=== PATIENT | female | born 1965 | race Caucasian/White ===

== ENCOUNTER 2017-05-13 01:37 | Observation (INO) | payer OTHER ==
[2017-05-13] VITALS (9 sets, daily range): BP systolic 98–141; BP diastolic 58–80; PULSE 69–88; RESP 16–19; TEMP 98.4–98.8; O2SAT 93–100
[~2017-05-13] VITALS: Ht 177.8 cm; Wt 64.9 kg
[~2017-05-13 01:37] MED LIST: Z.0.NO CURRENT MEDS
[2017-05-13] MEDS ORDERED: CLIN1CAP5 PO (01:48)
--- NOTE | 2017-05-13 02:34 | PD ---
HPI Chief Complaint: Edema Time Seen by Provider: 02:05 Travel History International Travel<30 days: No Contact w/Intl Traveler<30days: No Traveled to known affect area: No History of Present Illness HPI 51-year-old female complains of pain swelling left hand. Patient states that she was punctured by palm frond to the left hand about a week ago. Patient states that the palm frond still embedded in the left hand. Patient was seen at local urgent care and placed on clindamycin 300 mg 3 times a day, 6 days ago. Patient states that she has increasing pain and swelling to left hand since then. Patient denies any fever chills. Patient is not sure of TD booster status. PFSH Past Medical History Diminished Hearing: No Tetanus Vaccination: Unknown Influenza Vaccination: No ?: Not LMP: [place]ap[place] : 3 Para: 2 Miscarriage: 1 Past Surgical History Oral Surgery: Yes Other Surgery: Yes (perineal repair with anesthesia) Social History Alcohol Use: Yes (rare) Tobacco Use: No Substance Use: No Allergies-Medications (Allergen,Severity, Reaction): Coded Allergies: Cipro (Verified Allergy, Severe, MD TOLD HER NOT TO TAKE, 05/13/17) Sulfa (Verified Allergy, Severe, Shortness of Breath, 05/13/17) Penicillin (Verified Allergy, Mild, 05/13/17) Reported Meds & Prescriptions Reported Meds & Active Scripts Active Reported Clindamycin (Clindamycin HCl) 150 Mg Cap 300 Mg PO Q8HR Review of Systems General / Constitutional: No: Fever Eyes: No: Visual changes HENT: No: Headaches Cardiovascular: No: Chest Pain or Discomfort Respiratory: No: Shortness of Breath Gastrointestinal: No: Abdominal Pain Genitourinary: No: Dysuria Musculoskeletal: Positive: Pain Skin: No Rash Neurologic: No: Weakness Psychiatric: No: Depression Endocrine: No: Polydipsia Hematologic/Lymphatic: No: Easy Bruising Physical Exam Narrative GENERAL: Well-nourished, well-developed patient. SKIN: Focused skin assessment warm/dry. HEAD: Normocephalic. EYES: No scleral icterus. No injection or drainage. NECK: Supple, trachea midline. No JVD or lymphadenopathy. CARDIOVASCULAR: Regular rate and rhythm without murmurs, gallops, or rubs. RESPIRATORY: Breath sounds equal bilaterally. No accessory muscle use. GASTROINTESTINAL: Abdomen soft, non-tender, nondistended. MUSCULOSKELETAL: No cyanosis, or edema. BACK: Nontender without obvious deformity. No CVA tenderness. Patient has soft tissue swelling tenderness at the second MCP joint of the left hand. Mild redness noted. No heat noted. Sensorimotor function distally intact. Patient has a lot of pain on flexion-extension of the left index finger at the MCP joint. Data Data Last Documented VS Vital Signs Date Time Temp Pulse Resp B/P Pulse Ox O2 Delivery O2 Flow Rate FiO2 05/13/17 01:42 98.4 69 18 107/73 99 Orders Complete Blood Count With Diff (05/13/17 02:57) Basic Metabolic Panel (Bmp) (05/13/17 02:57) Prothrombin Time / Inr (Pt) (05/13/17 02:57) Act Partial Throm Time (Ptt) (05/13/17 02:57) Iv Access Insert/Monitor (05/13/17 02:57) Electrocardiogram (05/13/17 02:57) Urinalysis - C+S If Indicated (05/13/17 02:57) Hand, Complete (Non3zmk) (05/13/17 02:57) [facility] Medical Decision Making Medical Screen Exam Complete: Yes Emergency Medical Condition: Yes Differential Diagnosis Differential diagnosis including cellulitis, abscess, retained foreign body, septic joint. Narrative Course 51-year-old female with pain swelling left hand secondary to puncture wound to left hand and foreign body retention. I spoke with hand surgeon Dr. Napoles. Advised observation and possible hand surgery in a.m. Diagnosis Primary Impression: Cellulitis of left hand Additional Impression: Foreign body of left hand Qualified Code: S60.552A - Foreign body of left hand, initial encounter Admitting Information Admitting Physician Requests: Observation Marcelino Crook MD May 13, 2017 02:34
[2017-05-13 03:29] LABS: BLOOD, URINE NEG (NEG); GLUCOSE,URINE NEG (NEG); KETONE, URINE NEG (NEG); NITRITE,URINE NEG (NEG)
[2017-05-13] MEDS ORDERED: ONDANSETRON HCL 4 MG/2 ML VIAL IV PRN (03:30)
[2017-05-13] MEDS ORDERED: TETANUS/DIPHTHERIA TOXOID ADULT 0.5 ML VIAL IM ONE (03:30)
[2017-05-13] MEDS ORDERED: CLINDAMYCIN INJ 300 MG in SODIUM CHLORIDE 0.9% INJ 100 ML IV ONE (03:30)
[2017-05-13] MEDS ORDERED: SODIUM CHLORIDE 0.9% FLUSH 10 ML FLUSH IVF PRN (03:30)
[2017-05-13 03:32] LABS: AUTOMATED NEUTROPHIL # 8.6 TH/MM3 (1.8-7.7); BASOPHIL # 0.1 TH/MM3 (0-0.2); BASOPHIL % 0.8 % (0.0-2.0); EOSINOPHIL # 0.2 TH/MM3 (0-0.4); EOSINOPHIL % 1.4 % (0.0-4.0); HEMATOCRIT 42.7 % (35.0-46.0); HEMO FLAGS DIFF FINAL; LYMPH % 21.9 % (9.0-44.0); LYMPHOCYTE # 2.7 TH/MM3 (1.0-4.8); MEAN CELL VOLUME 91.1 FL (80.0-100.0); MEAN CORPUSCULAR HEMOGLOBIN 30.6 PG (27.0-34.0); MEAN CORPUSCULAR HGB CONC 33.5 % (32.0-36.0); MONO % 6.8 % (0.0-8.0); NEUT % 69.1 % (16.0-70.0); PLATELET COUNT 222 TH/MM3 (150-450); RED BLOOD COUNT 4.69 MIL/MM3 (4.00-5.30); RED CELL DISTRIBUTION WIDTH 12.7 % (11.6-17.2); WHITE BLOOD COUNT 12.4 TH/MM3 (4.0-11.0)
[2017-05-13] MEDS: SODIUM CHLOR 0.9% 1000 ML INJ 1,000 ML IV SCH ×2 (03:33→14:36)
[2017-05-13 03:34] LABS: POTASSIUM 3.8 MEQ/L (3.5-5.1)
[2017-05-13 03:36] LABS: BICARBONATE 28.9 MEQ/L (21.0-32.0)
[2017-05-13 03:37] LABS: APTT (PATIENT) 28.2 SEC (24.3-30.1); INTERNATIONAL NORMALIZED RATIO 0.9 RATIO; PROTHROMBIN TIME - PATIENT 10.3 SEC (9.8-11.6)
[2017-05-13 03:56] LABS: URINE COLOR STRAW (YELLW/STRAW)
[2017-05-13 03:58] LABS: COMMENT (UR) CULTURE INDICATED; CULTURE IF INDICATED CULTURE INDICATED; SQUAMOUS EPITHELIAL CELL URINE 0-5 /hpf (0-5)
--- NOTE | 2017-05-13 04:08 | RADRPT ---
EXAM DATE/TIME: 05/13/2017 03:33 [place] COMPARISON: No previous studies available for comparison. INDICATIONS : Evaluate for foreign body. MEDICAL HISTORY : None. SURGICAL HISTORY : None. ENCOUNTER: Initial ACUITY: 1 week PAIN SCORE: 4/10 LOCATION: Left hand. FINDINGS: Three view examination of the left hand demonstrates no soft tissue swelling, dislocation, or fractur e. The carpal bones appear intact. The interphalangeal and metacarpophalangeal joints are intact. Bony mineralization is normal. CONCLUSION: Within normal limits. No perceptible foreign body. Ankit Canada MD on May 13, 2017 at 4:05 Board Certified Radiologist. This report was verified electronically.
--- NOTE | 2017-05-13 08:12 | HHI.HP ---
[place] [facility] Primary Care Physician Ebonie Dc MD Admission Diagnosis left hand cellulitis. Retained foreign body. Chief Complaint: left hand pain, ? palm frond embedded Travel History International Travel<30 Days: No Contact w/Intl Traveler <30 Da: No Traveled to Known Affected Are: No History of Present Illness 51-year-old female complains of pain swelling left hand. Patient states that she was punctured by palm frond to the left hand about a week ago outside her home. Patient states that she thinks the palm frond still embedded in the left hand. Patient was seen at local urgent care and placed on clindamycin 300 mg 3 times a day, 6 days ago. The swelling and redness improved on clindamycin however yesterday she had more swelling and significant pain in the joint prompting her to visit the ER around 2:30 AM this morning. Patient states that she has increasing pain and swelling to left hand since then. Patient denies any fever chills. ER evaluation revealed to inflammatory changes about the left second metacarpophalangeal joint with tenderness to palpation or increased warmth. Questionable foreign body noted at site. X-ray negative for foreign body. Tetanus booster administered. Hand surgery as early seen the patient is planning on surgical procedure around 4 PM today. Review of Systems Constitutional: DENIES: Diaphoretic episodes, Fatigue, Fever, Weight gain, Weight loss, Chills, Dizziness, Change in appetite, Night Sweats Eyes: DENIES: Blurred vision, Diplopia, Eye inflammation, Eye pain, Vision loss , Photosensitivity, Double Vision Ears, nose, mouth, throat: DENIES: Tinnitus, Hearing loss, Vertigo, Nasal discharge, Oral lesions, Throat pain, Hoarseness, Ear Pain, Running Nose, Epistaxis, Sinus Pain, Toothache, Odynophagia Respiratory: DENIES: Apneas, Cough, Snoring, Wheezing, Hemoptysis, Sputum production, Shortness of breath Cardiovascular: DENIES: Chest pain, Palpitations, Syncope, Dyspnea on Exertion , PND, Lower Extremity Edema, Orthopnea, Claudication Gastrointestinal: DENIES: Abdominal pain, Black stools, Bloody stools, BRB per rectum, Constipation, Diarrhea, GERD, Nausea, Reflux, Vomiting, Difficulty Swallowing, Anorexia, See HPI Genitourinary: DENIES: Abnormal vaginal bleeding, Dysmenorrhea, Dyspareunia, Sexual dysfunction, Urinary frequency, Urinary incontinence, Urgency, Hematuria , Dysuria, Nocturia, Vaginal discharge Musculoskeletal: COMPLAINS OF: Joint pain Integumentary: COMPLAINS OF: Rash, DENIES: Abnormal pigmentation, Pruritus, Nail changes, Breast masses, Breast skin changes, Nipple discharge Hematologic/lymphatic: DENIES: Bruising, Lymphadenopathy Neurologic: DENIES: Abnormal gait, Headache, Localized weakness, Paresthesias, Seizures, Speech Problems, Tremor, Poor Balance Psychiatric: DENIES: Anxiety, Confusion, Mood changes, Depression, Hallucinations, Agitation, Suicidal Ideation, Homicidal Ideation, Delusions, History of Bipolar, History of Schizophrenia Past Family Social History Past Medical History Essentially negative History of lipoma Past Surgical History Subcutaneous removed from back, benign Reported Medications None regularly, but has been on clindamycin since May 07 Allergies: Coded Allergies: Cipro (Verified Allergy, Severe, MD TOLD HER NOT TO TAKE, 05/13/17) Sulfa (Verified Allergy, Severe, Shortness of Breath, 05/13/17) Penicillin (Verified Allergy, Mild, 05/13/17) Family History Breast cancer and a family member, essentially noncontributory Social History Denies tobacco, alcohol or illicit drug use 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 Alert and oriented. SKIN: Left second MCP joint overlying tissue with mild erythema, edema and tenderness to palpation. Possible white colored foreign body presents left MTP laterally. HEAD: Atraumatic. Normocephalic. No temporal or scalp tenderness. EYES: Pupils equal round and reactive. Extraocular motions intact. No scleral icterus. No injection or drainage. ENT: Nose without bleeding, purulent drainage or septal hematoma. Airway patent. NECK: Trachea midline. No JVD or lymphadenopathy. Supple, nontender, no meningeal signs. CARDIOVASCULAR: Regular rate and rhythm without murmurs, gallops, or rubs. RESPIRATORY: Clear to auscultation. Breath sounds equal bilaterally. No wheezes , rales, or rhonchi. GASTROINTESTINAL: Abdomen soft, non-tender, nondistended. No hepato-splenomegaly , or palpable masses. No guarding. MUSCULOSKELETAL: Extremities without clubbing, cyanosis, or edema. Left second MCP as noted above. Some painful range of motion and tenderness on the palmar and dorsal aspect.. No calf tenderness. NEUROLOGICAL: Awake and alert. Cranial nerves II through XII intact. Motor and sensory grossly within normal limits. Five out of 5 muscle strength in all muscle groups. Normal speech. Laboratory Laboratory Tests Test 05/13/17 05/13/17 03:05 03:15 Urine Color STRAW Urine Turbidity CLEAR Urine pH 7.0 Urine Specific [place] 1.004 Urine Protein NEG Urine Glucose (UA) NEG Urine Ketones NEG Urine Occult Blood NEG Urine Nitrite NEG Urine Bilirubin NEG Urine Leukocyte Esterase NEG Urine WBC 3-5 Urine WBC Clumps RARE Urine Squamous Epithelial 0-5 Cells Microscopic Urinalysis Comment CULTURE INDICATED White Blood Count 12.4 Red Blood Count 4.69 Hemoglobin 14.3 Hematocrit 42.7 Mean Corpuscular Volume 91.1 Mean Corpuscular Hemoglobin 30.6 Mean Corpuscular Hemoglobin 33.5 Concent Red Cell Distribution Width 12.7 Platelet Count 222 Mean Platelet Volume 9.7 Neutrophils (%) (Auto) 69.1 Lymphocytes (%) (Auto) 21.9 Monocytes (%) (Auto) 6.8 Eosinophils (%) (Auto) 1.4 Basophils (%) (Auto) 0.8 Neutrophils # (Auto) 8.6 Lymphocytes # (Auto) 2.7 Monocytes # (Auto) 0.8 Eosinophils # (Auto) 0.2 Basophils # (Auto) 0.1 CBC Comment DIFF FINAL Differential Comment Prothrombin Time 10.3 Prothromb Time International 0.9 Ratio Activated Partial 28.2 Thromboplast Time Sodium Level 141 Potassium Level 3.8 Chloride Level 105 Carbon Dioxide Level 28.9 Anion Gap 7 Blood Urea Nitrogen 13 Creatinine 0.68 Estimat Glomerular Filtration 92 Rate Random Glucose 101 Calcium Level 9.3 Date/Time Procedure Status Source Growth 05/13/17 03:05 Urine Culture Received Urine Clean Catch Pending Result Diagram: 05/13/17 0315 05/13/17 0315 Imaging Last 72 hours Impressions Hand X-Ray 05/13/17 0257 Signed Impressions: Service Date/Time: Saturday, May 13, 2017 03:33 - CONCLUSION: Within normal limits. No perceptible foreign body. Ankit Canada MD Assessment and Plan Problem List: (1) Cellulitis of left hand Status: Acute Plan: Patient currently on IV clindamycin and had good response to oral clindamycin initially as an outpatient. Hand surgery has seen the patient and plans for operative procedure around 4 PM today. Patient will be nothing by mouth starting now. Possible foreign body noted, possible tenosynovitis given exam findings. Code Status full Discussed Condition With Patient, ER physician and . Bogdan Croft MD PhD May 13, 2017 08:12
--- NOTE | 2017-05-13 08:22 | MB ---
cc: JAE HAHN MD DATE OF CONSULTATION 05/13/2017 REASON FOR CONSULTATION Foreign body left hand. HISTORY The patient is a 51-year-old right-hand dominant female who presented with complaints of pain and swelling involving the left hand for the past one week. The patient states she was working in her yard and was punctured by a palm tree thorn about a week ago. She was seen by her primary care. She was on clindamycin. The patient had worsening of symptoms since last night. She complaints of a constant throbbing pain. She also complains of difficulty making a fist. Denies any drainage. Denies any tingling or numbness. Denies any fever. PAST MEDICAL AND SURGICAL HISTORY As noted, none are significant. EXAMINATION The patient is alert and oriented x3. Examination of left hand reveals swelling of around the metacarpal phalangeal joint of the index finger. Questionable foreign body palpable on the lateral aspect. There is also evidence of swelling on the volar aspect of the MP joint. No tenderness is noted along the flexor tendon sheath or over the middle of the distal phalanx region. Tenderness noted over the MP joint region on the volar and dorsolateral aspect. Range of motion of the MP joint is limited and painful. On making a fist, she has finger to palm distance of 3-4 cm. She has intact distal circulation. The patient has intact distal sensation. LABORATORY DATA Blood work was reviewed. She has a white count of 12.4 with neutrophil shift of 69%. X-rays of the left hand shows no evidence of radiopaque foreign body. ASSESSMENT A 51-year-old female with foreign body, palm tree thorn left index finger MP joint region. PLAN Continue with IV antibiotics. We will plan for exploration and possible removal of foreign body, possible arthrotomy metacarpal phalangeal joint left index finger today. We will keep the patient n.p.o. from 08:00 a.m. Jae Hahn MD SE/STELLA /7:08 AM /8:21 AM DAISY
[2017-05-13] MEDS: SODIUM CHLORIDE 0.9% FLUSH 10 ML FLUSH IV FLUSH SCH ×2 (08:29→21:00)
[2017-05-13] MEDS ORDERED: ONDANSETRON HCL 4 MG/2 ML VIAL IV PUSH ONE (12:00)
[2017-05-13] MEDS ORDERED: PROPOFOL 200 MG/20 ML AMP IV ONE (12:00)
[2017-05-13] MEDS ORDERED: KETOROLAC TROMETHAMINE 60 MG/2 ML (IM) VIAL IM ONE (12:00)
[2017-05-13] MEDS: LACTATED RINGER'S 1000 ML IV PRN ×2 (16:00→20:05)
[2017-05-13] MEDS ORDERED: SODIUM CHLORID 0.9% 500 ML IV PRN (16:00)
[2017-05-13] MEDS ORDERED: CHLORHEXIDINE GLUCONATE 2 % 1 PACK (2 CLOTHS) TOPICAL PRN (16:00)
[2017-05-13] MEDS ORDERED: INSULIN HUMAN REGULAR 1,000 UNITS/10 ML VIAL SQ PRN (16:00)
[2017-05-13] MEDS ORDERED: METOPROLOL TARTRATE 25 MG TAB PO PRN (16:00)
[2017-05-13] MEDS ORDERED: POVIDONE IODINE 5% (ANTISEPSIS KIT) 4 APPLICATIONS EACH NARE PRN (16:00)
[2017-05-13] MEDS ORDERED: NEOMYCIN/POLYMYXIN 1 ML G.U. IRRIGANT ONE (16:21)
[2017-05-13] MEDS ORDERED: BUPIVACAINE HCL PF 0.5% 30 ML VIAL ONE (16:22)
[2017-05-13] MEDS ORDERED: LIDOCAINE HCL 2% 50 ML VIAL ONE (16:22)
[2017-05-13] MEDS ORDERED: CLINDAMYCIN PHOS 900 MG/6 ML VIAL ONE (16:44)
[2017-05-13] MEDS ORDERED: Vancomycin Consult Pharmacy 1 EA OTHER SCH (18:15)
--- NOTE | 2017-05-13 18:15 | PD.OP ---
Operative Report Preoperative Diagnosis: (1) Foreign body of left hand Postoperative Diagnosis: (1) septic arthritis metacarpophalangeal joint left index finger Procedure: exploration, arthrotomy and wash Metacarpophalangeal joint left index finger Anesthesia: general Surgeon: Ric Napoles [employer] Manager(s): bartolo Operation and Findings: purulence and inflammed synovium MP joint left index finger Ric Napoles MD May 13, 2017 18:15
--- NOTE | 2017-05-13 18:56 | EKG ---
Date Performed: 05/13/2017 Time Performed: 03:14:12 PTAGE: 51 years EKG: Sinus rhythm Since previous tracing, no significant change noted NORMAL ECG PREVIOUS TRACING : 11/29/2003 09.52 DOCTOR: Mitesh Yu Interpretating Date/Time 05/13/2017 18:56:13
--- NOTE | 2017-05-13 19:06 | EKG ---
Date Performed: 05/13/2017 Time Performed: 08:48:27 PTAGE: 51 years EKG: Sinus rhythm Since previous tracing, no significant change noted NORMAL ECG PREVIOUS TRACING : 05/13/2017 03.14 DOCTOR: Mitesh Yu Interpretating Date/Time 05/13/2017 19:04:44
[2017-05-13] MEDS ORDERED: VANCOMYCIN 1,000 MG/NS 250 ML IV ONE ×2 (19:15)
[2017-05-13] MEDS: ACETAMINOPHEN/HYDROcodone 325 MG/5 MG TAB PO PRN (22:25)
[2017-05-14] VITALS: BP 107/67; PULSE 77; RESP 16; TEMP 97.5; O2SAT 97
[2017-05-14 00:24] VITALS: BP_SYST 158; BP_SYST 164; BP_DIAS 106; BP_DIAS 86; PULSE 80; RESP 18; TEMP 99.2; O2SAT 96
[2017-05-14] MEDS: SODIUM CHLOR 0.9% 1000 ML INJ 1,000 ML IV SCH ×3 (02:01→18:45)
[2017-05-14] MEDS: ACETAMINOPHEN/HYDROcodone 325 MG/5 MG TAB PO PRN ×3 (04:26→16:50)
[2017-05-14 06:44] LABS: AUTOMATED NEUTROPHIL # 5.1 TH/MM3 (1.8-7.7); BASOPHIL # 0.1 TH/MM3 (0-0.2); EOSINOPHIL # 0.2 TH/MM3 (0-0.4); EOSINOPHIL % 2.2 % (0.0-4.0); HEMATOCRIT 37.7 % (35.0-46.0); HEMO FLAGS DIFF FINAL; LYMPH % 26.4 % (9.0-44.0); LYMPHOCYTE # 2.2 TH/MM3 (1.0-4.8); MEAN CELL VOLUME 91.2 FL (80.0-100.0); MONO % 7.9 % (0.0-8.0); NEUT % 62.5 % (16.0-70.0); PLATELET COUNT 175 TH/MM3 (150-450); RED BLOOD COUNT 4.13 MIL/MM3 (4.00-5.30); RED CELL DISTRIBUTION WIDTH 12.7 % (11.6-17.2); WHITE BLOOD COUNT 8.3 TH/MM3 (4.0-11.0)
--- NOTE | 2017-05-14 07:23 | HHI.PR ---
Subjective Remarks s/p arthrotomy left index finger MP joint complains of mild pain able to sleep last night no fever denies any tingling or numbness Objective Vital Signs Date Time Temp Pulse Resp B/P Pulse Ox O2 Delivery O2 Flow Rate FiO2 05/14/17 00:24 99.2 80 18 164/106 96 158/86 05/14/17 00:00 97.5 77 16 107/67 97 05/13/17 23:27 18 05/13/17 19:20 98 21 05/13/17 18:30 98.8 79 14 126/71 100 Room Air 05/13/17 18:15 79 14 119/66 100 Room Air 05/13/17 18:15 79 14 119/66 100 Room Air 05/13/17 18:01 98.8 82 14 111/74 99 Room Air 05/13/17 18:01 82 05/13/17 13:00 98.8 87 19 118/80 99 05/13/17 08:34 98.5 88 19 115/63 93 05/13/17 07:37 99 I/O 05/13/17 05/13/17 05/13/17 05/14/17 05/14/17 05/14/17 07:00 15:00 23:00 07:00 15:00 23:00 Intake Total 100 ml 600 ml 1400 ml Balance 100 ml 600 ml 1400 ml Intake IV Total 100 ml 200 ml 1400 ml Other 400 ml # Voids 1 1 left hand dressing in place. intact sensation and circulation distally able to wiggle her fingers WBC count: normal gram stain and cultures pending Result Diagram: 05/14/17 0450 05/13/17 0315 Assessment and Plan Assessment and Plan 51 year old female s/p arthrotomy and wash MP joint left index finger POD 1 Plan: continue IV antibiotics I will change dressing later today hand elevation and range of motion exercises hand surgery will follow. Ric Napoles MD May 14, 2017 07:23
--- NOTE | 2017-05-14 07:52 | MP ---
cc: JAE HAHN MD DATE OF SURGERY: 05/13/2017 PREOPERATIVE DIAGNOSIS Foreign body left index finger metacarpophalangeal joint region. POSTOPERATIVE DIAGNOSIS Septic arthritis metacarpophalangeal joint left index finger. PROCEDURE Exploration, arthrotomy, wash of metacarpophalangeal joint left index finger. SURGEON Dr. Hahn. ANESTHESIA General. ESTIMATED BLOOD LOSS Minimal. TOURNIQUET TIME 44 minutes at 250 mmHg. SPECIMEN Specimen was sent for culture, sensitivity and pathology. CONDITION The patient was recovered and sent to the recovery room in stable condition. INDICATION The patient is a 51-year-old female who presented with complaints of foreign body/palm tree thorn to the left index finger region for the past one week. The patient was initially treated with p.o. antibiotics. She came to the [facility] ER last night with worsening pain involving the left index finger. She also complained of worsening pain with range of motion of the finger. On examination she had a questionable foreign body palpable along the radial aspect of the MP joint of the index finger with swelling over the dorsal and lateral aspect of the MP joint. Range of motion of the index finger was limited and painful. X-rays were negative for a radiopaque foreign body. She had an elevated white count of 12.7. The patient was consented for exploration, possible removal of foreign body, possible arthrotomy of the metacarpophalangeal joint. She was explained the risks and benefits of the procedure. DETAILS OF PROCEDURE The patient was brought to the operating room. Under general anesthesia the right upper extremity was thoroughly prepped and draped. The incision site was marked in a curvilinear fashion over the dorsal lateral aspect of the MP joint of the index finger measuring about 3 cm. The limb was elevated and a tourniquet inflated to 250 mmHg. The incision was initially made at the distal aspect of the MP joint region. The incision was deepened. Soft tissue dissection was carried out. There was no evidence of foreign body within the soft tissue. The incision was then extended proximally. Skin flaps were elevated. There was evidence of bulging of the sagittal band on the radial aspect. An incision was made through the sagittal band parallel to the fibers exposing the capsule. There was evidence of bulging of the capsule. A small capsulotomy was carried out and there was evidence of purulent material within the joint so decision was made to do a formal arthrotomy. Through the sagittal band a longitudinal capsulotomy was carried out exposing the MP joint. There was evidence of inflamed synovium within the joint, purulent material within the region. Material was sent for culture and sensitivity. The synovium was rongeured and sent for pathology. No evidence of foreign body was noted within the joint. Thorough wash was given with normal saline mixed with irrigant. About 0.5 liter of solution was used. The capsulotomy wound was left open, packing carried out with 1/2" iodoform packing material. Skin flaps were then approximated using 5-0 nylon in a horizontal mattress interrupted fashion. About 5 cc of local anesthesia containing a mixture of 2% lidocaine and 0.5% Marcaine was injected proximally. A bulky hand dressing was applied which was held in place by Sof-Rol and bias hand wrap. The tourniquet was deflated. Total tourniquet time was 44 minutes. The patient had good distal circulation after release of tourniquet. The patient was recovered and sent to the recovery room in stable condition. The plan will be to remove the packing tomorrow. Will start IV antibiotics and obtain Infectious Disease consult. Jae Hahn MD SE/LIAM /6:23 PM /7:42 AM DAISY
--- NOTE | 2017-05-14 08:32 | HHI.PR ---
Subjective Remarks Feeling OK. Trying to stay active moving fingers. No f/c. Pain controlled. Tolerating PO well. Objective Vitals Vital Signs Date Time Temp Pulse Resp B/P Pulse Ox O2 Delivery O2 Flow Rate FiO2 05/14/17 00:24 99.2 80 18 164/106 96 158/86 05/14/17 00:00 97.5 77 16 107/67 97 05/13/17 23:27 18 05/13/17 19:20 98 21 05/13/17 18:30 98.8 79 14 126/71 100 Room Air 05/13/17 18:15 79 14 119/66 100 Room Air 05/13/17 18:15 79 14 119/66 100 Room Air 05/13/17 18:01 98.8 82 14 111/74 99 Room Air 05/13/17 18:01 82 05/13/17 13:00 98.8 87 19 118/80 99 05/13/17 08:34 98.5 88 19 115/63 93 05/13/17 05/13/17 05/14/17 15:00 23:00 07:00 Intake Total 600 ml 1400 ml Balance 600 ml 1400 ml Intake IV Total 200 ml 1400 ml Other 400 ml # Voids 1 1 GENERAL: nad, a/o, cooperative SKIN: Warm and dry. HEAD: Normocephalic. EYES: No scleral icterus. No injection or drainage. NECK: Supple, trachea midline. No JVD or lymphadenopathy. CARDIOVASCULAR: Regular rate and rhythm without murmurs, gallops, or rubs. RESPIRATORY: Breath sounds equal bilaterally. No accessory muscle use. GASTROINTESTINAL: Abdomen soft, non-tender, nondistended. bs wnl. MUSCULOSKELETAL: left hand with postop dressing in place. No drainage noted. Moves all fingers well. neurovasc intact. Result Diagram: 05/14/17 0450 05/13/17 0315 Imaging Last 72 hours Impressions Hand X-Ray 05/13/17 0257 Signed Impressions: Service Date/Time: Saturday, May 13, 2017 03:33 - CONCLUSION: Within normal limits. No perceptible foreign body. Ankit Canada MD Urinary Catheter: No Vascular Central Line Catheter: No A/P Problem List: (1) Cellulitis of left hand Status: Acute Plan: Pt s/p I&D of septic joint 05/13/17. Continue IV Abx. ID consulted. Hopefully can convert to oral med as pt planning trip [place] this weekend. (2) septic arthritis metacarpophalangeal joint left index finger Status: Acute Plan: as noted above. Appreciate hand surgery input. ID consulted. Discharge Planning hopefully d/c in 1-2 days. Physician Certification 2 Midnight Certification Type: Continued Stay Order for Inpatient Services The services are ordered in accordance with Medicare regulations or non- Medicare payer requirements, as applicable. In the case of services not specified as inpatient-only, they are appropriately provided as inpatient services in accordance with the 2-midnight benchmark. Estimated LOS (days): 1 days is the estimated time the patient will need to remain in the hospital, assuming treatment plan goals are met and no additional complications. Post-Hospital Plan: Home Bogdan Sun MD PhD May 14, 2017 08:32
[2017-05-14 08:42] VITALS: BP 113/78; PULSE 65; RESP 12; TEMP 98; O2SAT 99
[2017-05-14] MEDS: VANCOMYCIN 1,000 MG/NS 250 ML IV SCH ×4 (08:46→21:08)
[2017-05-14] MEDS: SODIUM CHLORIDE 0.9% FLUSH 10 ML FLUSH IV FLUSH SCH ×2 (08:50→21:00)
[2017-05-14 13:35] VITALS: BP 120/71; PULSE 76; RESP 15; TEMP 97.9; O2SAT 98
--- NOTE | 2017-05-14 18:57 | PD.ID.CON ---
History of Present Illness Service ID Consult Requested By Dr Sun Reason for Consult R hand cellulitis Primary Care Physician Ebonie Dc MD Diagnoses: History of Present Illness 51 yo female healthy, no med problems sustained puncture wound of rosum of L hand with a palm thorn 5 days ago . She start to experince pain swelling and redness of her R hand She was taking clindamycin with a temporarily improvement She present s to the hsopital with worsning swelling, pain She underwhen surgery yday She has no fever, chills No leukocytosi She was started on vancomycin and is apparently improving Review of Systems Except as stated in HPI: all other systems reviewed are Neg Past Family Social History Allergies: Coded Allergies: Cipro (Verified Allergy, Severe, MD TOLD HER NOT TO TAKE, 05/13/17) Sulfa (Verified Allergy, Severe, Shortness of Breath, 05/13/17) Penicillin (Verified Allergy, Mild, 05/13/17) Past Medical History unremarkable Past Surgical History skin surgery Active Ordered Medications Medications where reviewed in EMR Antibiotics Include: vancomycin Family History Non-Contributory. Social History No Tobacco. No ETOH. No Illicit Drugs. Physical Exam Vital Signs Vital Signs Date Time Temp Pulse Resp B/P Pulse Ox O2 Delivery O2 Flow Rate FiO2 05/14/17 13:35 97.9 76 15 120/71 98 05/14/17 08:42 98.0 65 12 113/78 99 05/14/17 00:24 99.2 80 18 164/106 96 158/86 05/14/17 00:00 97.5 77 16 107/67 97 05/13/17 23:27 18 05/13/17 19:20 98 21 Physical Exam CONSTITUTIONAL/GENERAL: This is an adequately nourished patient, in no apparent distress. TUBES/LINES/DRAINS: SKIN: No jaundice, rashes, or lesions. Skin temperature appropriate. Not diaphoretic. HEAD: Atraumatic. Normocephalic. EYES: Pupils equal and round and reactive. Extraocular motions intact. No scleral icterus. No injection or drainage. Fundi not examined. ENT: Hearing grossly normal. Nose without bleeding or purulent drainage. Oral mucosae moist without visible erythema, exudates, masses, or lesions. NECK: Trachea midline. Supple, nontender. CARDIOVASCULAR: Regular rate and rhythm without murmurs, gallops, or rubs. No JVD. Peripheral pulses symmetric. RESPIRATORY/CHEST: Symmetric, unlabored respirations. Clear to auscultation. Breath sounds equal bilaterally. No wheezes, rales, or rhonchi. GASTROINTESTINAL: Abdomen soft, non-tender, nondistended. No hepato-splenomegaly , or palpable masses. No guarding. Bowel sounds present. GENITOURINARY: Without palpable bladder distension. MUSCULOSKELETAL: Extremities without clubbing, cyanosis, or edema. STATUS LOCALIS: L hand is mildly edematous with residual erythema incision is small, well approximated wit minimal serous odorless draiange No sattelite lesion, no ascending lymphangitis ano lympahdenopathy LYMPHATICS: No palpable cervical or supraclavicular adenopathy. NEUROLOGICAL: Awake and alert. Motor and sensory grossly within normal limits. Follows commands. Clear speech. Moves all extremities. PSYCHIATRIC: No obvious anxiety/depression. no apparent hallucinations or other psychotic thought process. Laboratory Laboratory Tests Test 05/14/17 04:50 White Blood Count 8.3 Red Blood Count 4.13 Hemoglobin 12.4 Hematocrit 37.7 Mean Corpuscular Volume 91.2 Mean Corpuscular Hemoglobin 30.0 Mean Corpuscular Hemoglobin 33.0 Concent Red Cell Distribution Width 12.7 Platelet Count 175 Mean Platelet Volume 10.5 Neutrophils (%) (Auto) 62.5 Lymphocytes (%) (Auto) 26.4 Monocytes (%) (Auto) 7.9 Eosinophils (%) (Auto) 2.2 Basophils (%) (Auto) 1.0 Neutrophils # (Auto) 5.1 Lymphocytes # (Auto) 2.2 Monocytes # (Auto) 0.7 Eosinophils # (Auto) 0.2 Basophils # (Auto) 0.1 CBC Comment DIFF FINAL Differential Comment Date/Time Procedure Status Source Growth 05/13/17 17:37 Gram Stain - Final Resulted Abscess Finger 05/13/17 17:37 Wound Culture - Preliminary Resulted Abscess Finger NO GROWTH IN 24 HOURS. 05/13/17 03:05 Urine Culture - Preliminary Resulted Urine Clean Catch NO GROWTH IN 24 HOURS. Result Diagram: 05/14/17 0450 05/13/17 0315 Imaging Last Impressions Hand X-Ray 05/13/17 1917 Signed Impressions: Service Date/Time: Saturday, May 13, 2017 03:33 - CONCLUSION: Within normal limits. No perceptible foreign body. Ankit Canada MD Assessment and Plan Assessment and Plan L hand infection sp punture wound with palpm thorn - clx negative so far - op report was reviwed; op findings cw septic arthritis metacarpophalangeal joint left index finger cont vancomycin for now fu clx will add AFB, fungal clx will fu path Macey King MD May 14, 2017 18:57
[2017-05-14 20:30] VITALS: BP 102/66; PULSE 18; RESP 18; TEMP 99.5; O2SAT 98
[2017-05-15] VITALS: BP 152/98; PULSE 75; RESP 16; TEMP 99.4; O2SAT 97
[2017-05-15] MEDS: ACETAMINOPHEN 325 MG TAB PO PRN ×2 (00:34→03:53)
[2017-05-15] MEDS: SODIUM CHLOR 0.9% 1000 ML INJ 1,000 ML IV SCH (06:08)
[2017-05-15] MEDS ORDERED: PHARMACY ORDERED LAB ONE (07:45)
[2017-05-15] MEDS: SODIUM CHLORIDE 0.9% FLUSH 10 ML FLUSH IV FLUSH SCH (08:39)
[2017-05-15] MEDS: VANCOMYCIN 1,000 MG/NS 250 ML IV SCH ×2 (09:15)
[2017-05-15 09:45] VITALS: BP 112/75; PULSE 65; RESP 15; TEMP 98.4; O2SAT 98
--- NOTE | 2017-05-15 10:04 | HHI.PR ---
Subjective Remarks Doing better. No f/c. Pain well controlled. Swelling decreased. Would like to go home when possible. Objective Vitals Vital Signs Date Time Temp Pulse Resp B/P Pulse Ox O2 Delivery O2 Flow Rate FiO2 05/15/17 09:45 98.4 65 15 112/75 98 05/15/17 00:00 99.4 75 16 152/98 97 05/14/17 20:30 99.5 18 18 102/66 98 Manual Cuff/Auscultation 05/14/17 13:35 97.9 76 15 120/71 98 05/14/17 05/14/17 05/15/17 15:00 23:00 07:00 Intake Total 1200 ml 480 ml Balance 1200 ml 480 ml Intake Oral 1200 ml 480 ml # Voids 4 2 # Bowel Movements 0 GENERAL: NAD, a/o, walking around room SKIN: Warm and dry. Left hand with post surgical dressing in place, no d/c. HEAD: Normocephalic. EYES: No scleral icterus. No injection or drainage. NECK: Supple, trachea midline. No JVD or lymphadenopathy. CARDIOVASCULAR: Regular rate and rhythm without murmurs, gallops, or rubs. RESPIRATORY: Breath sounds equal bilaterally. No accessory muscle use. GASTROINTESTINAL: Abdomen soft, non-tender, nondistended. MUSCULOSKELETAL: No cyanosis, or edema. Moves fingers well. Result Diagram: 05/14/17 0450 05/15/17 0533 Imaging Last 72 hours Impressions Hand X-Ray 05/13/17 0257 Signed Impressions: Service Date/Time: Saturday, May 13, 2017 03:33 - CONCLUSION: Within normal limits. No perceptible foreign body. Ankit Canada MD Urinary Catheter: No Vascular Central Line Catheter: No A/P Problem List: (1) Cellulitis of left hand Status: Acute Plan: Pt s/p I&D of septic joint 05/13/17. Continue IV Abx. ID consulted and notes reviewed. Discussed with Dr King. May be able to send pt home on bactrim, keflex combo. Dr King doesn't really want to use zyvox unless we have clear indication. Cltx still negative. Pt appears to be improving. Hopefully can convert to oral med as pt planning trip [place] this weekend. (2) septic arthritis metacarpophalangeal joint left index finger Status: Acute Plan: as noted above. Appreciate hand surgery and ID input. . Discharge Planning hopefully d/c today or tomorrow. Bogdan Sun MD PhD May 15, 2017 10:04
--- NOTE | 2017-05-15 11:23 | HHI.PR ---
Subjective Remarks s/p arthrotomy left index finger MP joint complains of stiffness able to sleep last night no fever denies any tingling or numbness Objective Vital Signs Date Time Temp Pulse Resp B/P Pulse Ox O2 Delivery O2 Flow Rate FiO2 05/15/17 09:45 98.4 65 15 112/75 98 05/15/17 00:00 99.4 75 16 152/98 97 05/14/17 20:30 99.5 18 18 102/66 98 Manual Cuff/Auscultation 05/14/17 13:35 97.9 76 15 120/71 98 I/O 05/14/17 05/14/17 05/14/17 05/15/17 05/15/17 05/15/17 07:00 15:00 23:00 07:00 15:00 23:00 Intake Total 1400 ml 1200 ml 480 ml Balance 1400 ml 1200 ml 480 ml Intake Oral 1200 ml 480 ml IV Total 1400 ml # Voids 1 4 2 # Bowel Movements 0 examination of left hand: packing in place mild swelling noted no drainage full extension, terminal degrees of flexion at MP joint painful and limited intact sensation cultures: no growth to date gram stain: few wbc's Result Diagram: 05/14/17 0450 05/15/17 0533 Assessment and Plan Assessment and Plan 51 year old female s/p arthrotomy and wash MP joint left index finger POD 2 Plan: continue antibiotics based on ID recommendations Packing removed and new dry dressing applied. hand elevation and range of motion exercises, hand surgery will follow. Ric Napoles MD May 15, 2017 11:23
[2017-05-15] MEDS ORDERED: CLIN1CAP6 PO (15:16)
[2017-05-15] MEDS ORDERED: HYDR-3516 PO (15:16)
--- NOTE | 2017-05-15 15:17 | HHI.PR ---
Addendum to Inpatient Note Additional Information path with mild inflammation clx neg @ 48 hrs fu AFB/fungal clx OK to dc home cont clindamycin 300 mg po qid x 3 weeks fu CBC every 7-10 days while on clindamycin pt needs to report nausea, vomiting diarrhea abd reba n or rash fu with Dr Orourke upon dc call [phone] for appoinment Macey King MD May 15, 2017 15:17
--- NOTE | 2017-05-15 15:21 | HHI.DS ---
Discharge Summary Admission Date May 13, 2017 at 03:16 Discharge Date: May 15, 2017 Admitting Diagnosis left hand cellulitis. Retained foreign body. (1) Cellulitis of left hand Diagnosis: Principal (2) septic arthritis metacarpophalangeal joint left index finger Diagnosis: [facility] Consultants Dr Macdonald, hand surgery Dr Macey King, ID Procedures I&D left 2nd mcp joint, 05/13/17 Brief History 51-year-old female complains of pain swelling left hand. Patient states that she was punctured by palm frond to the left hand about a week ago outside her home. Patient states that she thinks the palm frond still embedded in the left hand. Patient was seen at local urgent care and placed on clindamycin 300 mg 3 times a day, 6 days ago. The swelling and redness improved on clindamycin however yesterday she had more swelling and significant pain in the joint prompting her to visit the ER around 2:30 AM this morning. Patient states that she has increasing pain and swelling to left hand since then. Patient denies any fever chills. ER evaluation revealed to inflammatory changes about the left second metacarpophalangeal joint with tenderness to palpation or increased warmth. Questionable foreign body noted at site. X-ray negative for foreign body. Tetanus booster administered. Hand surgery as early seen the patient is planning on surgical procedure around 4 PM today. CBC/BMP: 05/14/17 0450 05/15/17 0533 Significant Findings Laboratory Tests Test 05/13/17 05/13/17 03:05 03:15 Urine WBC Clumps RARE (NONE) White Blood Count 12.4 TH/MM3 (4.0-11.0) Neutrophils # (Auto) 8.6 TH/MM3 (1.8-7.7) Imaging Last 72 hours Impressions Hand X-Ray 05/13/17 0257 Signed Impressions: Service Date/Time: Saturday, May 13, 2017 03:33 - CONCLUSION: Within normal limits. No perceptible foreign body. Ankit Canada MD Hospital Course Pt presented with swelling left index mcp joint and worsening symptoms despite outpt tx with abx. She was seen by hand surgery and had I&D of left 2nd mcp. She tolerated well. No f/c. No significant wbc elevation. Was on IV abx. Converted to oral Clinda per d/w Dr King on day of d/c. Pt was quite anxious for d/c home. She is planning trip this weekend out of area. Dr Macdonald and Fernando were contacted re: d/c orders. Pt Condition on Discharge: Stable Discharge Disposition: Discharge Home Discharge Instructions DIET: Follow Instructions for: As Tolerated, No Restrictions Activities you can perform: Regular-No Restrictions, See Additionl Instruction Other Activity Instructions: keep wound clean and dry Follow up Referrals: Hand Surgery Infectious Disease PCP Follow-up New Orders: CBC WITH DIFF New Medications: Clindamycin (Clindamycin) 300 Mg Cap 300 MG PO Q6H Infection #84 Ref 0 CAP Hydrocodone-Acetaminophen (Hydrocodone-Acetaminophen) 5-325 mg Tab 1 TAB PO Q6H PRN pain level 3-10 #15 TAB Bogdan Sun MD PhD May 15, 2017 15:21
[2017-05-15] MEDS ORDERED: VANCOMYCIN INJ 1,250 MG in SODIUM CHLOR 0.9% 250 ML INJ 250 ML IV SCH (18:00)
[2017-05-17] MEDS ORDERED: VANCOMYCIN TROUGH ONE (05:45)
== END 2017-05-15 15:48 | disposition home or self-care (01) ==
LOC: PHED 01:37 → PHEDA 03:16 → PH3A 04:17
PROVIDERS: ADMIT Legal Medicine; ATTEND Legal Medicine
PROC: 0RJ Upper Joints, Inspection (ICD-10-PCS; principal; 2017-05-13 16:52)
DX: L03.114 Cellulitis of left upper limb (principal); M00.9 Pyogenic arthritis, unspecified; S60.552A Superficial foreign body of left hand, initial encounter; S61.442A Puncture wound with foreign body of left hand, initial encounter; X58.XXXA Exposure to other specified factors, initial encounter
CPT/HCPCS: 01922; 26075; 73130; 80048; 80202; 81001; 82565; 85025; 85610; 85730; 87015; 87070; 87086; 87102; 87116; 87205; 87206; 88305; 88312; 90714; 93005; 99285; G0378; J1885; J2405; J3010; J3370; J7030; J7050; J7120